=== PATIENT | male | born 1980 | race Caucasian/White ===

== ENCOUNTER 2016-12-11 09:24 | Emergency (ER) | payer BC, OTHER ==
[2016-12-11 09:43] VITALS: BP 139/87
--- NOTE | 2016-12-11 10:28 | RAD ---
Indication: Left wrist tenderness, scaphoid pain 3 views of the wrist demonstrates no fracture. No other bone or joint abnormality is identified. IMPRESSION: NO FRACTURE OF THE WRIST IS NOTED.
--- NOTE | 2016-12-11 10:29 | RAD ---
Indication: Right wrist injury 3 views of the wrist demonstrates no fracture. No other bone or joint abnormality is identified. IMPRESSION: NO FRACTURE OF THE WRIST IS NOTED.
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
== END 2016-12-11 10:56 | disposition home or self-care (01) ==
LOC: UCCORT 09:24
DX: S63.502A Unspecified sprain of left wrist, initial encounter (principal); V86.92XA Unspecified occupant of snowmobile injured in nontraffic accident, initial encounter; Y93.89 Activity, other specified; Y92.9 Unspecified place or not applicable
CPT/HCPCS: 99202; G0463

== ENCOUNTER 2019-02-27 10:59 | Day surgery (SDC) | payer BC ==
--- NOTE | 2019-02-27 07:25 | HP ---
PREOPERATIVE HISTORY AND PHYSICAL: DATE OF ADMISSION/SURGERY: 02/27/19 DATE OF OFFICE VISIT/ENCOUNTER: 02/26/19 ATTENDING SURGEON: Kajal Ball MD * (DICTATED BY [place]) PROCEDURE: Left ring finger phalanx closed reduction, percutaneous fixation. HISTORY OF PRESENT ILLNESS: This is a 39-year-old male, who sustained injury to his left hand on 02/23/19 when he got his hand caught between his truck and his trailer. He was seen at the emergency room in [place] and had x-rays of the hand, which showed a displaced fracture of the left ring finger. He was splinted and referred to Dr. Ball for further evaluation and treatment considerations. After clinical evaluation and review of x-rays, Dr. Ball is recommending surgical intervention for best outcome and the patient has consented to proceed. PAST MEDICAL HISTORY: Asthma/seasonal allergies. PAST SURGICAL HISTORY: 1. Left hand finger laceration. 2. Tonsillectomy. CURRENT MEDICATIONS: 1. Albuterol inhaler p.r.n. 2. Ibuprofen p.r.n. 3. Zyrtec p.r.n. ALLERGIES: PERCOCET causes hives. FAMILY MEDICAL HISTORY: Diabetes and hypertension. 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 He chews tobacco, has done so for 20 plus years. He denies recreational drug use. He drinks alcohol on regular occasion. REVIEW OF SYSTEMS: Negative for general, cephalic, cardiovascular, respiratory , GI, , other musculoskeletal, integumentary, endocrine, neurologic, and hematologic symptoms. Infectious Diseases: Negative for MRSA, hepatitis C, HIV. PHYSICAL EXAMINATION GENERAL: A well-developed, well-nourished 39-year-old male, in no acute distress. VITAL SIGNS: Height 5 feet 9 inches, weight 217 pounds. Pulse rate 72, blood pressure 112/82. HEENT: Normocephalic, atraumatic. Pupils are equal, round, and reactive to light and accommodation. Extraocular movements are intact. Throat is clear. NECK: Supple. No palpable lymph nodes. PULMONARY: Lungs are clear to auscultation bilaterally. No wheezes, rales, or rhonchi. CARDIOVASCULAR: Regular rate and rhythm. S1, S2. No murmurs, rubs, or gallops. No edema. ABDOMEN: Positive bowel sounds. Soft, nontender. NEUROLOGICAL: Alert and oriented x3. Cranial nerves II through XII are intact. Sensation is intact to light touch. MUSCULOSKELETAL: On exam of his left hand, he has swelling concentrated around the ring finger with visible deformity. He has tenderness to palpation along the finger and cannot flex the finger. Skin is intact. Neurovascular function is intact. DIAGNOSTIC STUDIES: Imaging studies of the left hand show a comminuted fracture of the proximal metaphysis due to proximal to mid diaphysis of the fourth proximal phalanx with 60 degrees apex volar angulation. IMPRESSION: As above. PLAN: The patient is scheduled to undergo a left ring finger phalanx closed reduction and percutaneous fixation with Dr. Ball on 02/27/19. He will return to the office 10 to 14 days postop for followup and suture removal. A prescription for Roxie was e-scribed to the patient's pharmacy for postoperative pain management. [place] [id number]/[facility] #: [id number] JESSICA
[2019-02-27] MEDS ORDERED: ceFAZolin 2 GM PREMIX in ORs 2 GM/50 ML BAG ONE (11:39)
[2019-02-27] MEDS ORDERED: fentaNYL* 50 MCG/ML 2 ML VIAL (100 MCG VIAL) ONE (12:39)
[2019-02-27] MEDS ORDERED: Midazolam* 1 MG/ML 5 ML VIAL (5 MG) ONE (12:39)
[2019-02-27] MEDS ORDERED: Ketorolac INJ* 30 MG/ML 1 ML VIAL ONE (12:53)
[2019-02-27] MEDS ORDERED: Ondansetron INJ* 2 MG/ML VIAL ONE (12:53)
[2019-02-27] MEDS ORDERED: Lidocaine 2% PF * 5 ML VIAL ONE (12:53)
[2019-02-27] MEDS ORDERED: Propofol* 10 MG/ML 20 ML BTL ONE ×2 (12:53→13:37)
[2019-02-27] MEDS ORDERED: Acetaminophen TAB* 325 MG PO PRN (12:59)
[2019-02-27] MEDS ORDERED: Famotidine IV* 10 MG/ML 2 ML (20 mg) ONE (12:59)
[2019-02-27] MEDS ORDERED: DiMENhydriNATE IV* 50 MG/ML VIAL IV PUSH PRN (12:59)
[2019-02-27] MEDS ORDERED: Famotidine IV* 10 MG/ML 2 ML (20 mg) IV SLOW PU ONE (12:59)
[2019-02-27] MEDS ORDERED: Lidocaine 1% INJ* 10 MG/ML 30 ML SDV ONE (13:01)
[2019-02-27 14:13] VITALS: BP 122/84
--- NOTE | 2019-02-27 22:00 | OP ---
DATE OF OPERATION: 02/27/19 [facility] DATE OF : 80 SURGEON: Kajal Ball MD RADIOLOGIST DIAGNOSTIC: [place] Arnold ANESTHESIA: Local MAC PRE-OP DIAGNOSIS: Left ring finger proximal phalanx fracture, comminuted and displaced. POST-OP DIAGNOSIS: Left ring finger proximal phalanx fracture, comminuted and displaced. OPERATIVE PROCEDURE: Closed reduction and pinning, left ring finger proximal phalanx. ESTIMATED BLOOD LOSS: Zero. TOURNIQUET TIME: About 20 minutes. INDICATIONS FOR PROCEDURE: Ghanshyam is a 39-year-old male who crushed his left ring finger between his trailer and his truck. He suffered a comminuted and displaced fracture of the proximal phalanx. He presents for closed reduction and pinning. DESCRIPTION OF PROCEDURE: The patient was brought to the operating room, was given a sedation anesthetic and a digital block with a total of 20 cc of 1% plain lidocaine. The skin of his left hand and forearm was prepped and draped in the usual sterile fashion. The hand and forearm were exsanguinated and the tourniquet elevated to 250 mmHg. The fracture was manipulated with traction and then two 0.045-inch K-wires were driven through the proximal fragment and then to the medullary canal of the distal fragment. The AP and lateral views showed the fracture fragments were nicely reduced and secured with the 2 K- wires. The K-wires were bent and cut, and dressed with caps, Xeroform, 4x4, Webril, and an ulnar gutter splint. The patient tolerated the procedure well and was brought to the recovery room in good condition. [id number]/[facility] #: [id number] MTDD
== END 2019-02-27 14:28 | disposition home or self-care (01) ==
LOC: OREAST 10:59
PROVIDERS: ATTEND Orthopaedic Surgery
DX: S62.615A Displaced fracture of proximal phalanx of left ring finger, initial encounter for closed fracture (principal); V48.3XXA Unspecified car occupant injured in noncollision transport accident in nontraffic accident, initial encounter; Y92.9 Unspecified place or not applicable; J45.909 Unspecified asthma, uncomplicated; Z72.0 Tobacco use
CPT/HCPCS: 76000; C1776; J0690; J1885; J2250; J2405; J2704; J3010